=== PATIENT | female | born 1955 | race Caucasian/White ===

== ENCOUNTER 2016-09-17 16:10 | Emergency (ER) | payer MEDICAID ==
[2016-09-17 16:23] VITALS: BP 170/108
[2016-09-17] MEDS ORDERED: Ketorolac 60 MG/2 ML SDV IM ONE (16:59)
[2016-09-17] MEDS ORDERED: Cyclobenzaprine 10 MG Tab PO ONE (16:59)
--- NOTE | 2016-09-17 17:01 | EDM.PDOC ---
ED HPI HEADACHE COMPLAINT - General Chief Complaint: Headache Stated Complaint: HEADACHE Time Seen by Provider: 09/17/16 16:55 Source: Reports: Patient, RN notes reviewed History Limitations: Reports: No limitations - History of Present Illness INITIAL COMMENTS - FREE TEXT/NARRATIVE: 61-year-old female presents emergency department day complaint of headache, she states the headache is typical for her she describes more as a tension-type headache she has pain in the back of her neck comes up around the back of her head last headache was in April similar to this event denies any fevers - Related Data Allergies/ADRs: Allergies Allergy/AdvReac Type Severity Reaction Status Date / Time amoxicillin [Amoxicillin] Allergy Rash Verified 09/17/16 16:23 clindamycin Allergy Rash Verified 09/17/16 16:23 Sulfa (Sulfonamide Allergy Rash Verified 09/17/16 16:23 Antibiotics) Home Meds: Home Meds EPINEPHrine [Epipen 2-El] 1 dose IM ASDIRECTED 03/11/13 [History] metroNIDAZOLE [Metronidazole] 1 applic TOP DAILY 03/11/13 [History] Aspirin/Calcium Carbonate/Mag [Aspirin Buffered 325 mg Tab] 1 tab PO ASDIRECTED 09/17/16 [History] Levofloxacin 500 mg PO DAILY 09/17/16 [History] Multivitamin [Multivitamins] 1 tab PO DAILY 09/17/16 [History] Past Medical History HEENT History: Reports: Sinusitis Musculoskeletal History: Reports: Arthritis, Other (see below) Other Musculoskeletal History: right hip arthritis Neurological History: Reports: Headaches, chronic Oncologic (Cancer) History: Reports: Other (see below) Other Oncologic History: skin cancer Dermatologic History: Reports: Other (see below) Other Dermatologic History: skin cancer - Infectious Disease History Infectious Disease History: Reports: Chicken pox, Measles, Mumps - Past Surgical History HEENT Surgical History: Reports: Tonsillectomy Dermatological Surgical History: Reports: Skin biopsy Social & Family History - Tobacco Use Smoking Status *Q: Never Smoker Second Hand Smoke Exposure: No - Caffeine Use Caffeine Use: Reports: Soda - Alcohol Use Days Per Week of Alcohol Use: 0 - Recreational Drug Use Recreational Drug Use: No ED ROS GENERAL - Review of Systems Review Of Systems: See Below Constitutional: Reports: no symptoms HEENT: Reports: Eye pain Respiratory: Reports: No Symptoms Cardiovascular: Reports: No symptoms GI/Abdominal: Reports: No symptoms : Reports: no symptoms Musculoskeletal: Reports: neck pain Neurological: Reports: Headache - Physical Exam Exam: See Below Exam Limited By: No limitations General Appearance: alert, WD/WN, no apparent distress Eye Exam: bilateral eye: EOMI, normal fundi, normal inspection Head Exam: atraumatic, normocephalic Neck: normal inspection, supple, non-tender, full range of motion Respiratory/Chest: no respiratory distress, lungs clear, normal breath sounds, no accessory muscle use Cardiovascular: regular rate, rhythm, no murmur Course - Vital Signs Last Recorded V/S: Last Vital Signs Temp 97.3 F 09/17/16 16:21 Pulse 67 09/17/16 16:21 Resp 18 09/17/16 16:21 BP 170/108 H 09/17/16 16:21 Pulse Ox 97 09/17/16 16:21 - Orders/Labs/Meds Meds: Medications Discontinued Medications Generic Name Dose Route Start Last Admin Trade Name Freq PRN Reason Stop Dose Admin Cyclobenzaprine HCl 10 mg 09/17/16 16:59 09/17/16 17:05 Flexeril PO 09/17/16 17:00 10 mg ONETIME ONE Administration Ketorolac Tromethamine 60 mg 09/17/16 16:59 09/17/16 17:05 Toradol IM 09/17/16 17:00 60 mg ONETIME ONE Administration Departure - Departure Time of Disposition: 17:58 Disposition: Home, Self-Care 01 Condition: good Clinical Impression: Tension-type headache Forms: ED Department Discharge Additional Instructions: Use Flexeril as needed for muscle relaxants in combination with ibuprofen, Please followup with your primary care provider in 3-5 days if not better, please call return to the emergency department with worsening of symptoms. - Assessment/Plan Plan: Assessment Acuity = acute Site and laterality = tension-type headache Etiology = muscle spasm neck Manifestations = none Location of injury = home Lab values = none Plan She had good improvement combination of Toradol and Flexeril discharged home with 15 Flexeril followup with primary care as needed Patient was in agreement with the plan all questions were answered, they were instructed to return to the emergency department or call for worsening symptoms. This note was dictated using [employer] voice recognition software please call with any questions.
== END 2016-09-17 18:14 | disposition home or self-care (01) ==
LOC: JP.ED 16:10
DX: G44.209 Tension-type headache, unspecified, not intractable (principal); Z85.828 Personal history of other malignant neoplasm of skin; Z98.890 Other specified postprocedural states; Z79.82 Long term (current) use of aspirin; Z79.899 Other long term (current) drug therapy; Z88.1 Allergy status to other antibiotic agents; Z88.2 Allergy status to sulfonamides
CPT/HCPCS: 96372; 99284; A9270; J1885

== ENCOUNTER 2016-12-24 18:30 | Emergency (ER) | payer MEDICAID ==
[2016-12-24] MEDS ORDERED: Sodium Chloride 0.9% 10 ML Syringe FLUSH PRN (20:50)
[2016-12-24] MEDS ORDERED: Dexamethasone 4 MG/ML SDV IVPUSH ONE (20:51)
[2016-12-24] MEDS ORDERED: Sodium Chloride 0.9% 1,000 ML IV ONE (20:51)
[2016-12-24] MEDS ORDERED: diphenhydrAMINE 50 MG/ML SDV IVPUSH ONE (20:52)
[2016-12-24] MEDS ORDERED: Ketorolac 30 MG/ML SDV IVPUSH ONE (20:52)
[2016-12-24] MEDS ORDERED: Metoclopramide 10 MG/2 ML SDV IVPUSH ONE (20:52)
[2016-12-24] MEDS ORDERED: Dexamethasone 4 MG/ML SDV ONE (21:21)
[2016-12-24 22:15] VITALS: BP 139/79
--- NOTE | 2016-12-24 22:31 | EDM.PDOC ---
ED HPI GENERAL MEDICAL PROBLEM - General Chief Complaint: Headache Stated Complaint: HEADACHE Time Seen by Provider: 12/24/16 21:30 Source of Information: Reports: Patient History Limitations: Reports: No Limitations - History of Present Illness INITIAL COMMENTS - FREE TEXT/NARRATIVE: Eboni is a 61 year old female with a hx of tension headaches who presents to the ED today with c/o frontal headache, consistent with her tension headaches since this morning. Patient also endorses GI upset/nausea as well. She reports she has taken Ibuprofen without relief. She denies any vomiting. Patient denies any fever or nuchal rigidity. Onset: Today Duration: Day(s): (1) Headache Pain Score (Numeric/FACES): 7 - Related Data Allergies Allergy/AdvReac Type Severity Reaction Status Date / Time amoxicillin [Amoxicillin] Allergy Rash Verified 12/24/16 20:02 clindamycin Allergy Rash Verified 12/24/16 20:02 Sulfa (Sulfonamide Allergy Rash Verified 12/24/16 20:02 Antibiotics) Home Meds: Home Meds EPINEPHrine [Epipen 2-El] 1 dose IM ASDIRECTED 03/11/13 [History] metroNIDAZOLE [Metronidazole] 1 applic TOP DAILY 03/11/13 [History] Multivitamin [Multivitamins] 1 tab PO DAILY 09/17/16 [History] Ibuprofen [Advil] 200 mg PO ASDIRECTED PRN 12/24/16 [History] Past Medical History HEENT History: Reports: Sinusitis [employer] History: Reports: Musculoskeletal History: Reports: Arthritis Other Musculoskeletal History: right hip arthritis Neurological History: Reports: Headaches, Chronic Oncologic (Cancer) History: Reports: Basal Cell Carcinoma Other Oncologic History: skin cancer Dermatologic History: Reports: Other (See Below) Other Dermatologic History: rosacea - Infectious Disease History Infectious Disease History: Reports: Chicken Pox, Measles, Mumps - Past Surgical History HEENT Surgical History: Reports: Tonsillectomy Dermatological Surgical History: Reports: Skin Biopsy Social & Family History - Tobacco Use Smoking Status *Q: Never Smoker Second Hand Smoke Exposure: No - Caffeine Use Caffeine Use: Reports: Soda - Alcohol Use Days Per Week of Alcohol Use: 0 - Recreational Drug Use Recreational Drug Use: No ED ROS GENERAL - Review of Systems Review Of Systems: ROS reveals no pertinent complaints other than HPI. - Physical Exam Exam: See Below Exam Limited By: No Limitations General Appearance: Alert, WD/WN, No Apparent Distress Head Exam: Atraumatic Neck: Normal Inspection, Supple, Non-Tender, Full Range of Motion Respiratory/Chest: No Respiratory Distress, Lungs Clear Cardiovascular: Normal Peripheral Pulses, Regular Rate, Rhythm Neuro Exam (Abbreviated): Alert, Oriented, CN II-XII Intact Extremities: Normal Inspection Psychiatric: Normal Affect, Normal Mood Skin Exam: Warm, Dry, Intact Course - Vital Signs Text/Narrative:: Eboni is a 61 year old female with a hx of tension headaches who presents to the ED today with frontal headache since this morning, please refer to HPI and focused exam. Patient on exam is well hydrated, she is non-toxic appearing. Patient has no neuro/focal deficits and shows no signs of meningismus. Likely tension headache given hx and exam findings. PIV established, patient given 1 liter of NS with IV decadron, toradol, benadryl and reglan with resolution of her nausea and near resolution of her headache. Patient is feeling better and feels ready to be discharged home. I did discuss with patient the importance of staying well hydrated. She can alternate Ibuprofen and Tylenol as needed. Reasons to return to the ED discussed, patient agreeable to plan of care and questions were answered prior to discharge, she was discharged home with her driving in stable condition. Last Recorded V/S: Last Vital Signs Temp 37.0 C 12/24/16 19:55 Pulse 79 12/24/16 22:14 Resp 20 12/24/16 22:14 BP 139/79 12/24/16 22:14 Pulse Ox 95 12/24/16 22:14 - Orders/Labs/Meds Orders: Active Orders 24 hr Category Date Time Status Peripheral IV Care [RC] . DIRECTED Care 12/24/16 20:50 Active Sodium Chloride 0.9% [Saline Flush] Med 12/24/16 20:50 Active 10 ml FLUSH ASDIRECTED PRN Peripheral IV Insertion Adult [OM.PC] Routine Oth 12/24/16 20:50 Ordered Medication Orders Sodium Chloride (Saline Flush) 10 ml FLUSH ASDIRECTED PRN PRN Reason: Keep Vein Open Last Admin: 12/24/16 21:24 Dose: 10 ml Meds: Medications Generic Name Dose Route Start Last Admin Trade Name Freq PRN Reason Stop Dose Admin Sodium Chloride 10 ml 12/24/16 20:50 12/24/16 21:24 Saline Flush FLUSH 10 ml ASDIRECTED PRN Administration Keep Vein Open Discontinued Medications Generic Name Dose Route Start Last Admin Trade Name Mica PRN Reason Stop Dose Admin Dexamethasone 10 mg 12/24/16 20:51 12/24/16 21:22 Dexamethasone IVPUSH 12/24/16 20:52 10 mg ONETIME ONE Administration Dexamethasone Confirm 12/24/16 21:21 Dexamethasone Administered 12/24/16 21:22 Dose 8 mg .ROUTE .STK-MED ONE Diphenhydramine HCl 25 mg 12/24/16 20:52 12/24/16 21:17 Benadryl IVPUSH 12/24/16 20:53 25 mg ONETIME ONE Administration Sodium Chloride 1,000 mls @ 999 mls/hr 12/24/16 20:51 12/24/16 21:10 Normal Saline IV 12/24/16 21:51 999 mls/hr .BOLUS ONE Administration Ketorolac Tromethamine 30 mg 12/24/16 20:52 12/24/16 21:14 Toradol IVPUSH 12/24/16 20:53 30 mg ONETIME ONE Administration Metoclopramide HCl 5 mg 12/24/16 20:52 12/24/16 21:11 Reglan IVPUSH 12/24/16 20:53 5 mg ONETIME ONE Administration Departure - Departure Time of Disposition: 23:00 Disposition: Home, Self-Care 01 Condition: Good Clinical Impression: Tension headache - Discharge Information Instructions: Tension Headache Referrals: Ely Crum PA [Primary Care Provider] - Forms: ED Department Discharge Additional Instructions: Take ibuprofen 600 mg every 6 hours as needed for headache, this can be alternated with 650 mg of Tylenol every 4 hours as needed. Make sure you are staying well hydrated. Get plenty of rest. A good shoulder and scalp massage would be helpful (you can pass this on to your ). Take care! - My Orders Last 24 Hours: My Active Orders 12/24/16 20:50 Peripheral IV Care [RC] . DIRECTED Sodium Chloride 0.9% [Saline Flush] 10 ml FLUSH ASDIRECTED PRN Peripheral IV Insertion Adult [OM.PC] Routine - Assessment/Plan Last 24 Hours: My Active Orders 12/24/16 20:50 Peripheral IV Care [RC] . DIRECTED Sodium Chloride 0.9% [Saline Flush] 10 ml FLUSH ASDIRECTED PRN Peripheral IV Insertion Adult [OM.PC] Routine
== END 2016-12-24 23:00 | disposition home or self-care (01) ==
LOC: JP.ED 18:30
DX: G44.209 Tension-type headache, unspecified, not intractable (principal); Z85.828 Personal history of other malignant neoplasm of skin; Z98.890 Other specified postprocedural states; Z79.899 Other long term (current) drug therapy; Z88.1 Allergy status to other antibiotic agents; Z88.2 Allergy status to sulfonamides
CPT/HCPCS: 96361; 96374; 96375; 99284; J1100; J1200; J1885; J2765; J7040; J7050

== ENCOUNTER 2020-12-10 07:18 | Day surgery (SDC) | payer MEDICARE ==
[2020-12-10] MEDS ORDERED: Propofol 200 MG/20 ML SDV ONE (07:30)
[2020-12-10] MEDS ORDERED: Midazolam 1 MG/ML 2 ML SDV ONE (07:30)
[2020-12-10] MEDS ORDERED: fentaNYL 100 MCG/2 ML SDV ONE (07:30)
[2020-12-10] MEDS ORDERED: Sodium Chloride 0.9% 1,000 ML IV SCH (08:00)
[2020-12-10 10:10] VITALS: BP 137/82; PULSE 56
--- NOTE | 2020-12-10 12:16 | OR ---
DATE OF PROCEDURE: 12/10/2020 SURGEON: Loy Krishna MD PROCEDURE: Colonoscopy. FINDINGS: Sigmoid colon polyp, somewhat flat, approximately 5 mm, and sigmoid colon, completely removed using endoscopic mucosal resection. PREOPERATIVE DIAGNOSIS: Screening colonoscopy. POSTOPERATIVE DIAGNOSIS: Screening colonoscopy. RISKS: Risks, benefits, alternatives, and limitations including, but not limited to, infection; bleeding; and perforation were explained to the patient. They wished to proceed. DESCRIPTION OF PROCEDURE: The patient was placed in left lateral decubitus position. Digital rectal exam performed without abnormality. The scope was introduced and advanced atraumatically to the ileocecal valve. A photo was taken of this. Scope was brought back through the entire colon. A sigmoid colon polyp was identified. This was elevated using normal saline. This was removed using hot snare wire device. The elevation was performed in all 4 quadrants without abnormality. No abnormalities on retroflexion. The patient tolerated the procedure well. Loy Krishna MD /[id number]
== END 2020-12-10 10:20 | disposition home or self-care (01) ==
LOC: JP.SDS 07:18
PROVIDERS: ATTEND Surgery
DX: Z12.11 Encounter for screening for malignant neoplasm of colon (principal); D12.5 Benign neoplasm of sigmoid colon
CPT/HCPCS: 45390; 88305; J2250; J2704; J3010; J7030

== ENCOUNTER 2022-06-13 07:04 | Inpatient (IN) | payer MEDICARE ==
[2022-06-13] MEDS ORDERED: diphenhydrAMINE 25 MG Cap PO PRN (07:39)
[2022-06-13] MEDS ORDERED: diphenhydrAMINE 50 MG/ML SDV IVPUSH PRN (07:39)
[2022-06-13] MEDS ORDERED: Ondansetron 4 MG/2 ML SDV IVPUSH PRN ×2 (07:39→14:25)
[2022-06-13] MEDS ORDERED: HYDROmorphone/Normal Saline 6 MG/30 ML PCA Vial IV PRN ×2 (07:39→14:11)
[2022-06-13] MEDS ORDERED: Naloxone 0.4 MG/ML SDV IVPUSH PRN ×2 (07:39→14:12)
[2022-06-13 07:53] LABS: ESTIMATED GFR 81 mL/min (>60)
[2022-06-13] MEDS ORDERED: Acetaminophen 500 MG Tab PO ONE (08:00)
[2022-06-13] MEDS ORDERED: Rocuronium 50 MG/5 ML Vial ONE (08:20)
[2022-06-13] MEDS ORDERED: Scopolamine 1.5 MG Transdermal Patch ONE ×2 (08:20→09:57)
[2022-06-13] MEDS ORDERED: Ondansetron 4 MG/2 ML SDV ONE (08:20)
[2022-06-13] MEDS ORDERED: Glycopyrrolate 0.2 MG/ML 5 ML MDV ONE (08:20)
[2022-06-13] MEDS ORDERED: Dexamethasone 4 MG/ML SDV ONE (08:20)
[2022-06-13] MEDS ORDERED: Neostigmine Methylsulfate 1 MG/ML 5 ML Syringe ONE (08:20)
[2022-06-13] MEDS ORDERED: Propofol 200 MG/20 ML SDV ONE (08:20)
[2022-06-13] MEDS ORDERED: Succinylcholine 200 MG/10 ML MDV ONE (08:20)
[2022-06-13] MEDS ORDERED: fentaNYL 250 MCG/5 ML SDV ONE ×2 (08:21→10:13)
[2022-06-13] MEDS ORDERED: Dextrose 5%-Lactated Ringers 1,000 ML IV SCH (08:30)
[2022-06-13] MEDS ORDERED: Linezolid 600 MG in Premix Bag 1 BAG IV ONE (09:00)
[2022-06-13] MEDS ORDERED: Ketamine 500 MG/5 ML MDV IV SCH (10:00)
[2022-06-13] MEDS ORDERED: Ketamine 17 MG in Sodium Chloride 0.9% 19.83 ML IV SCH (10:00)
[2022-06-13] MEDS ORDERED: Linezolid 600 MG/300 ML Premix Bag IRR ONE (10:29)
[2022-06-13] MEDS ORDERED: Lactated Ringers 1,000 ML ONE (10:36)
[2022-06-13] MEDS: VERIFY SCOP PATCH TOP SCH (15:46)
[2022-06-13] MEDS: Acetaminophen 325 MG Tab PO SCH ×2 (15:50→22:20)
[2022-06-13] MEDS: Dextrose 5%-Lactated Ringers 1,000 ML IV SCH (19:31)
[2022-06-14] MEDS: Dextrose 5%-Lactated Ringers 1,000 ML IV SCH (05:57)
[2022-06-14] MEDS: Acetaminophen 325 MG Tab PO SCH ×4 (05:57→21:04)
[2022-06-14] MEDS: VERIFY SCOP PATCH TOP SCH (08:01)
[2022-06-14] MEDS ORDERED: Dextrose 5%-Lactated Ringers 1,000 ML IV SCH (08:30)
[2022-06-14] MEDS ORDERED: HYDROmorphone 2 MG Tab PO PRN (08:36)
[2022-06-14] MEDS: Metoprolol Succinate 25 MG Tab.ER PO SCH (09:53)
[2022-06-14] MEDS: Magnesium Sulfate/Water 2 GM in Premix Bag 1 BAG IV SCH ×3 (09:54→21:08)
[2022-06-15] MEDS: Acetaminophen 325 MG Tab PO SCH (03:18)
[2022-06-15] MEDS: Magnesium Sulfate/Water 2 GM in Premix Bag 1 BAG IV SCH ×2 (03:18→09:13)
[2022-06-15 07:45] VITALS: BP 145/67; PULSE 58
[2022-06-15] MEDS: VERIFY SCOP PATCH TOP SCH (09:13)
[2022-06-15] MEDS: Metoprolol Succinate 25 MG Tab.ER PO SCH (09:39)
[2022-06-16] MEDS ORDERED: Scopolamine 1.5 MG Transdermal Patch TOP SCH (09:00)
== END 2022-06-15 10:15 | disposition home or self-care (01) | DRG 627 ==
LOC: JP.SDS 07:04 → EDSTATUS 09:00 → JP.MS 12:55
PROVIDERS: ADMIT Surgery; ATTEND Surgery
PROC: 0GBN0ZZ Excision of Right Inferior Parathyroid Gland, Open Approach (ICD-10-PCS; principal; 2022-06-13)
PROC: 0GBG0ZZ Excision of Left Thyroid Gland Lobe, Open Approach (ICD-10-PCS; 2022-06-13)
PROC: 0GBH0ZZ Excision of Right Thyroid Gland Lobe, Open Approach (ICD-10-PCS; 2022-06-13)
DX: D35.1 Benign neoplasm of parathyroid gland (principal); E21.0 Primary hyperparathyroidism; M85.80 Other specified disorders of bone density and structure, unspecified site; I10 Essential (primary) hypertension; M72.2 Plantar fascial fibromatosis; D36.10 Benign neoplasm of peripheral nerves and autonomic nervous system, unspecified; Z96.642 Presence of left artificial hip joint; Z90.89 Acquired absence of other organs; Z91.030 Bee allergy status; Z68.33 Body mass index [BMI] 33.0-33.9, adult; Z87.440 Personal history of urinary (tract) infections; Z85.828 Personal history of other malignant neoplasm of skin; Z79.899 Other long term (current) drug therapy; Z88.2 Allergy status to sulfonamides; Z88.1 Allergy status to other antibiotic agents; Z86.010 Personal history of colon polyps
CPT/HCPCS: 36415; 78070; 80048; 83735; 84100; 88305; 88307; A9270-GY; A9500; J0330; J1100; J1170; J2020; J2405; J2704; J2710; J3010; J3475; J3490; J7120; J7121

== ENCOUNTER 2022-07-31 21:09 | Emergency (ER) | payer MEDICARE ==
[2022-07-31 21:35] VITALS: BP 164/88; PULSE 80
== END 2022-07-31 22:29 | disposition home or self-care (01) ==
LOC: JP.ED 21:09
DX: S80.11XA Contusion of right lower leg, initial encounter (principal); I10 Essential (primary) hypertension; Z88.0 Allergy status to penicillin; Z91.030 Bee allergy status; Z88.2 Allergy status to sulfonamides; Z88.1 Allergy status to other antibiotic agents; W01.198A Fall on same level from slipping, tripping and stumbling with subsequent striking against other object, initial encounter; Y93.01 Activity, walking, marching and hiking
CPT/HCPCS: 73590-26-RT; 73590-RT; 99283

== ENCOUNTER 2023-07-11 19:49 | Emergency (ER) | payer MEDICARE ==
[2023-07-11] MEDS: Albuterol/Ipratropium 3.0-0.5 MG/3 ML Neb Soln NEB ONE ×2 (20:21→21:26)
[2023-07-11 20:34] LABS: BASOPHILS PERCENT AUTO 1.1 % (0.1-1.3); EOSINOPHILS ABSOLUTE AUTO 0.61 K/uL (0.00-0.40); EOSINOPHILS PERCENT AUTO 6.8 % (0.0-5.4); HEMATOCRIT 45.7 % (34.3-46.0); HEMOGLOBIN 15.4 g/dL (11.2-15.5); IMMATURE GRAN ABSOLUTE AUTO 0.04 K/uL (0.00-0.23); IMMATURE GRAN PERCENT AUTO 0.4 % (0.0-0.7); LYMPHOCYTES ABSOLUTE AUTO 1.46 K/uL (0.8-3.3); LYMPHOCYTES PERCENT AUTO 16.4 % (11.4-47.7); MEAN CORPUSCULAR HEMOGLOBIN 30.1 pg (31.6-35.5); MEAN CORPUSCULAR HGB CONC 33.7 g/dL (31.6-35.5); MEAN CORPUSCULAR VOLUME 89.3 fL (81.4-99.0); MONOCYTES ABSOLUTE AUTO 0.43 K/uL (0.20-0.90); MONOCYTES PERCENT AUTO 4.8 % (3.3-12.6); NEUTROPHILS ABSOLUTE AUTO 6.28 K/uL (1.0-7.6); NEUTROPHILS PERCENT AUTO 70.5 % (40.0-78.1); PLATELET COUNT,PLT 273 K/uL (130-375); RED BLOOD CELL COUNT 5.12 M/uL (3.77-5.24); WHITE BLOOD CELL COUNT,WBC 8.9 K/uL (3.2-11.0)
[2023-07-11 20:52] LABS: C-REACTIVE PROTEIN 1.06 mg/dL (<0.50); CALCIUM 9.3 mg/dL (8.5-10.1); CREATININE 0.9 mg/dL (0.6-1.0); EST CRCL DRUG DOSING (CG) 58.18 mL/min; POTASSIUM,K 3.7 mmol/L (3.6-5.2)
[2023-07-11 20:54] VITALS: BP 152/80; PULSE 85
[2023-07-11 20:54] LABS: ANION GAP 13.7 mmol/L (5.0-14.0)
[2023-07-11] MEDS: Dexamethasone 2 MG Tab PO ONE (21:26)
== END 2023-07-11 22:09 | disposition home or self-care (01) ==
LOC: JP.ED 19:49
DX: J18.9 Pneumonia, unspecified organism (principal); I10 Essential (primary) hypertension; Z88.2 Allergy status to sulfonamides; Z91.030 Bee allergy status; Z88.1 Allergy status to other antibiotic agents; Z79.899 Other long term (current) drug therapy
CPT/HCPCS: 36415; 80048; 83605; 85025; 86140; 94640; 99283; 99285; J7620; J8540

== ENCOUNTER 2023-07-14 05:35 | Emergency (ER) | payer MEDICARE ==
[2023-07-14 05:52] VITALS: BP 159/79; PULSE 73
[2023-07-14] MEDS: Albuterol/Ipratropium 3.0-0.5 MG/3 ML Neb Soln NEB ONE (06:00)
[2023-07-14] MEDS: Dexamethasone 2 MG Tab PO ONE (06:09)
[2023-07-14 06:16] LABS: BASOPHILS ABSOLUTE AUTO 0.11 K/uL (0.00-0.10); BASOPHILS PERCENT AUTO 1.1 % (0.1-1.3); EOSINOPHILS ABSOLUTE AUTO 1.08 K/uL (0.00-0.40); EOSINOPHILS PERCENT AUTO 11.3 % (0.0-5.4); HEMOGLOBIN 15.3 g/dL (11.2-15.5); IMMATURE GRAN ABSOLUTE AUTO 0.06 K/uL (0.00-0.23); IMMATURE GRAN PERCENT AUTO 0.6 % (0.0-0.7); LYMPHOCYTES ABSOLUTE AUTO 1.94 K/uL (0.8-3.3); LYMPHOCYTES PERCENT AUTO 20.3 % (11.4-47.7); MEAN CORPUSCULAR HEMOGLOBIN 29.8 pg (31.6-35.5); MEAN CORPUSCULAR HGB CONC 33.3 g/dL (31.6-35.5); MEAN CORPUSCULAR VOLUME 89.7 fL (81.4-99.0); MONOCYTES ABSOLUTE AUTO 0.48 K/uL (0.20-0.90); NEUTROPHILS ABSOLUTE AUTO 5.91 K/uL (1.0-7.6); NEUTROPHILS PERCENT AUTO 61.7 % (40.0-78.1); PLATELET COUNT,PLT 289 K/uL (130-375); RED BLOOD CELL COUNT 5.13 M/uL (3.77-5.24); WHITE BLOOD CELL COUNT,WBC 9.6 K/uL (3.2-11.0)
== END 2023-07-14 06:51 | disposition home or self-care (01) ==
LOC: JP.ED 05:35
DX: J44.9 Chronic obstructive pulmonary disease, unspecified (principal); I10 Essential (primary) hypertension; Z88.0 Allergy status to penicillin; Z91.030 Bee allergy status; Z79.899 Other long term (current) drug therapy
CPT/HCPCS: 36415; 71046; 85025; 94640; 99285; J8540; J7620

== ENCOUNTER 2024-08-28 14:36 | Emergency (ER) | payer MEDICARE ==
[2024-08-28 16:41] LABS: ALBUMIN 3.9 g/dL (3.4-5.0); BILIRUBIN DIRECT 0.21 mg/dL (0.0-0.2); BILIRUBIN INDIRECT 0.39; BILIRUBIN TOTAL 0.6 mg/dL (0.2-1.0); PROTEIN TOTAL,TP 7.7 g/dL (6.4-8.2); TROPONIN I HIGH SENSITIVITY 5.6 pg/mL (<=60.3)
[2024-08-28 17:19] LABS: ANION GAP 16.2 mmol/L (5.0-14.0); CALCIUM 8.9 mg/dL (8.5-10.1); CREATININE 1.2 mg/dL (0.6-1.0); EST CRCL DRUG DOSING (CG) 40.84 mL/min; POTASSIUM,K 4.2 mmol/L (3.6-5.2)
[2024-08-28] MEDS: Sodium Chloride 0.9% 10 ML Syringe FLUSH ONE (17:49)
[2024-08-28] MEDS: Sodium Chloride 0.9% 100 ML IV ONE (17:49)
[2024-08-28] MEDS: Iopamidol 755 Mg/ML 100 ML Bottle IV ONE (17:49)
[2024-08-28 19:40] LABS: HEMATOCRIT 47.6 % (34.3-46.0); HEMOGLOBIN 16.2 g/dL (11.2-15.5); MEAN CORPUSCULAR VOLUME 91.2 fL (81.4-99.0); RED BLOOD CELL COUNT 5.22 M/uL (3.77-5.24); WHITE BLOOD CELL COUNT,WBC 11.8 K/uL (3.2-11.0)
[2024-08-28 19:47] LABS: PROTHROMBIN TIME 10.6 sec (9.2-10.6)
[2024-08-28] MEDS ORDERED: Sodium Chloride 0.9% 1,000 ML IV SCH (20:00)
[2024-08-28] MEDS: Heparin Sodium 5,000 Units/ML Vial IV ONE (20:11)
[2024-08-28] MEDS: Sodium Chloride 0.9% 10 ML Syringe FLUSH PRN (20:14)
[2024-08-28] MEDS: Heparin Sodium/D5W 25,000 UNITS/500 ML BAG IV SCH (20:16)
[2024-08-28 20:22] VITALS: PULSE 72
[2024-08-28 21:13] VITALS: BP 179/109
== END 2024-08-28 21:38 ==
LOC: JP.ED 14:36
DX: I26.99 Other pulmonary embolism without acute cor pulmonale (principal); I47.9 Paroxysmal tachycardia, unspecified; I10 Essential (primary) hypertension; J44.89 Other specified chronic obstructive pulmonary disease; Z79.899 Other long term (current) drug therapy; Z88.0 Allergy status to penicillin; Z88.2 Allergy status to sulfonamides; Z88.1 Allergy status to other antibiotic agents; Z91.030 Bee allergy status
CPT/HCPCS: 36415; 71275; 80048; 80076; 84443; 84484; 85027; 85610; 93005; 93010; 96365; 99285; J1644; Q9967

== ENCOUNTER 2025-04-15 22:06 | Emergency (ER) | payer MEDICARE ==
[2025-04-15 23:40] VITALS: BP 156/98; PULSE 70
== END 2025-04-15 23:40 | disposition home or self-care (01) ==
LOC: JP.ED 22:06
DX: R04.0 Epistaxis (principal); I10 Essential (primary) hypertension; J45.909 Unspecified asthma, uncomplicated; Z88.2 Allergy status to sulfonamides; Z88.8 Allergy status to other drugs, medicaments and biological substances; Z79.899 Other long term (current) drug therapy
CPT/HCPCS: 99283